=== PATIENT | male | born 1975 | race Caucasian/White ===

== ENCOUNTER 2017-04-09 17:04 | Observation (INO) | payer MEDICARE ==
[~2017-04-09] VITALS: Ht 165.1 cm; Wt 78.5 kg
[2017-04-09 18:01] LABS: BASOPHILS 0.4 % (0-2); HEMATOCRIT 43.8 % (42.0-54.0); HEMOGLOBIN 15.4 g/dL (13.5-17.5); IMMATURE GRANULOCYTES 0.7 % (0-5); LYMPHOCYTES 13.7 % (15-50); MCH 32.4 pg (26.0-34.0); MCHC 35.2 g/dL (31.0-37.0); MCV 92.2 fL (80.0-100.0); MEAN PLATELET VOLUME 9.5 fL (7.4-10.4); MONOCYTES 9.4 % (2-11); NEUTROPHILS 73.8 % (40-80); PLATELET COUNT 204 10x3/uL (130-400); RBC 4.75 10x6/uL (4.20-6.10); RDW 12.8 % (11.5-14.5); WBC 5.6 10x3/uL (4.8-10.8)
[2017-04-09 18:27] LABS: APPEARANCE CLEAR (CLEAR); BILIRUBIN NEGATIVE (NEGATIVE); COLOR YELLOW (YELLOW); GLUCOSE NEGATIVE (NEGATIVE); KETONE NEGATIVE (NEGATIVE); NITRITE NEGATIVE (NEGATIVE); PH 7.5 (5.0-6.0); PROTEIN NEGATIVE (NEGATIVE); UROBILINOGEN NORMAL (NORMAL)
[2017-04-09 18:36] LABS: ALBUMIN 4.1 g/dL (3.4-5.0); ALKALINE PHOSPHATASE 95 U/L (46-116); ALT (SGPT) 28 U/L (10-68); BILIRUBIN - TOTAL 0.37 mg/dL (0.2-1.3); CALC OSMOLALITY 280 mosm/kg (275-300); CALCIUM 8.9 mg/dL (8.5-10.1); CARBON DIOXIDE 26.6 mmol/L (21.0-32.0); CHLORIDE - SERUM 102 mmol/L (98-107); GLUCOSE 89 mg/dL (74-106); POTASSIUM - SERUM 3.4 mmol/L (3.5-5.1); PROTEIN - SERUM 7.1 g/dL (6.4-8.2); SODIUM 142 mmol/L (136-145); UREA NITROGEN 11 mg/dL (7-18); eGFR NON AFRICAN AMERICAN 87 mL/min (90-120)
[2017-04-09 18:56] LABS: CREATINE KINASE 243 UL (21-232)
[2017-04-09 18:58] LABS: TROPONIN-I < 0.017 ng/mL (0.000-0.060)
[2017-04-09 18:59] LABS: CKMB 2.1 U/L (0.0-3.6)
[2017-04-09 19:26] LABS: UDS - AMPHET NEGATIVE QUAL (NEGATIVE); UDS - BARB NEGATIVE QUAL (NEGATIVE); UDS - BENZO NEGATIVE QUAL (NEGATIVE); UDS - COCAINE NEGATIVE QUAL (NEGATIVE); UDS - OPIATE NEGATIVE QUAL (NEGATIVE); UDS - PCP NEGATIVE QUAL (NEGATIVE); UDS - THC NEGATIVE QUAL (NEGATIVE)
--- NOTE | 2017-04-09 19:50 | NUR ---
PT ARRIVES FROM THE ER ACCOMPANIED BY ER NURSE AND PT'S GIRLFRIEND VIA WC. DENIES ANY C/O CHEST PAIN UPON ARRIVAL. ROOM AIR, SATS HI 90'S. PLACED ON TELEMETRY, NSR ON MONITOR - HR 70'S. ADMISSION ASSESSMENT AND HISTORY COMPLETED. MEDICATIONS RECONCILED AT THE BEDSIDE. PT GIVEN CALL LIGHT AND INSTRUCTED TO CALL FOR FURTHER NEEDS. VERBALIZES UNDERSTANDING.
[2017-04-09 20:00] VITALS: BP 130/84; BP 176/86
[2017-04-09 20:29] VITALS: BP 130/84; Ht 165.1 cm; Wt 78.5 kg
[2017-04-09] MEDS ORDERED: CELEXA20 MG PO (20:44)
[2017-04-09] MEDS ORDERED: TOFRANIL25 MG PO (20:45)
[2017-04-09] MEDS ORDERED: CARBATROL100 MG PO (20:46)
[2017-04-10] VITALS: BP 108/77
[2017-04-10 01:33] LABS: CKMB 1.6 U/L (0.0-3.6); CREATINE KINASE 177 UL (21-232); TROPONIN-I < 0.017 ng/mL (0.000-0.060)
[2017-04-10 04:00] VITALS: BP 98/63
[2017-04-10 06:49] LABS: CREATINE KINASE 142 UL (21-232)
[2017-04-10 06:50] LABS: TROPONIN-I < 0.017 ng/mL (0.000-0.060)
--- NOTE | 2017-04-10 07:30 | NUR ---
RECEIVED PT IN BED AAOX4 RESP UNLABORED DENIES ANY NEEDS AT THIS TIME NAD NOTED
[2017-04-10 08:00] VITALS: BP 112/69
[2017-04-10 11:25] VITALS: BP 120/66
[2017-04-10 13:43] LABS: CKMB 1.4 U/L (0.0-3.6); CREATINE KINASE 129 UL (21-232); TROPONIN-I < 0.017 ng/mL (0.000-0.060)
[2017-04-10 15:39] VITALS: BP 118/60
[2017-04-10 19:00] VITALS: BP 138/79
--- NOTE | 2017-04-10 19:00 | NUR ---
RECEIVED REPORT AND ASSUMED PT CARE FROM DAY SHIFT NURSE @ THIS TIME.
[2017-04-11] VITALS: BP 130/70
[2017-04-11 04:00] VITALS: BP 126/78
[2017-04-11 05:45] LABS: BASOPHILS 0.2 % (0-2); EOSINOPHILS 3.5 % (0-7); HEMOGLOBIN 14.5 g/dL (13.5-17.5); IMMATURE GRANULOCYTES 0.4 % (0-5); LYMPHOCYTES 24.4 % (15-50); MCH 32.2 pg (26.0-34.0); MCHC 33.7 g/dL (31.0-37.0); MEAN PLATELET VOLUME 10.3 fL (7.4-10.4); MONOCYTES 10.5 % (2-11); PLATELET COUNT 187 10x3/uL (130-400); RBC 4.51 10x6/uL (4.20-6.10); RDW 13.2 % (11.5-14.5); WBC 5.1 10x3/uL (4.8-10.8)
[2017-04-11 06:18] LABS: MCV 95.3 fL (80.0-100.0)
[2017-04-11 06:28] LABS: ALBUMIN 3.2 g/dL (3.4-5.0); ALKALINE PHOSPHATASE 79 U/L (46-116); ALT (SGPT) 26 U/L (10-68); BILIRUBIN - TOTAL 0.12 mg/dL (0.2-1.3); CALC OSMOLALITY 280 mosm/kg (275-300); CARBON DIOXIDE 25.2 mmol/L (21.0-32.0); CHLORIDE - SERUM 105 mmol/L (98-107); CREATININE - SERUM 1.1 mg/dL (0.6-1.3); GLUCOSE 118 mg/dL (74-106); POTASSIUM - SERUM 3.7 mmol/L (3.5-5.1); SODIUM 141 mmol/L (136-145); UREA NITROGEN 11 mg/dL (7-18); eGFR NON AFRICAN AMERICAN 78 mL/min (90-120)
--- NOTE | 2017-04-11 07:30 | NUR ---
RECEIVED PT IN BED AAOX4 RESP UNLABORED FAITH ANY NEEDS OR DISCOMFORT AT THIS TIME NAD NOTED
[2017-04-11 07:47] VITALS: BP 117/74
[2017-04-11] MEDS ORDERED: CELEXA20 MG PO (11:23)
[2017-04-11] MEDS ORDERED: TOFRANIL25 MG PO (11:24)
[2017-04-11] MEDS ORDERED: CARBATROL100 MG PO (11:25)
[2017-04-11 11:31] VITALS: BP 119/71
--- NOTE | 2017-04-11 12:15 | EC ---
PATIENT:DAVID PONCE DATE OF SERVICE: 04/09/17 SEX: M MEDICAL RECORD: [id number] DATE OF : 75 LOCATION:D.M2 D.211 AGE OF PATIENT: 41 ADMISSION DATE: 04/09/17 REFERRING PHYSICIAN: INTERPRETING PHYSICIAN: ELIDIA SANON MD ECHOCARDIOGRAM REPORT ECHO CHARGES 4 ECHO COMPLETE CLINICAL DIAGNOSIS: CP ECHOCARDIOGRAPHIC MEASUREMENTS (adult normal given) AC root (d.<3.7cm) 2.7 cm LV Septum d (<1.2 cm> 1.3 cm Valve Excursion 1.9 cm LV Septum (systole) 1.8 cm Left Atria (s.<4.0cm> 4.2 cm LVPW d(<1.2cm) 1.3 cm RV (d.<2.3cm) 2.5 cm LVPW (sytole) 1.7 cm LV diastole(<5.6CM) 5.0 cm MV E-F(>70mm/sec) cm LV systole 3.3 cm LVOT Diameter 1.7 cm MV exc.(>10mm) cm Est.ejection fraction (50-75%) % Pericardial Effusion N DOPPLER: LVIT cm/sec A 78.0 cm/sec E 55.0 cm/sec LA cm/sec RVSP 30.0 mmHg LVOT 100 cm/sec AOP1/2T m/s Asc. Ao 120 cm/sec RVOT 73.0 cm/sec RA cm/sec PA 100 cm/sec AV Gradient Peak 5.7 mmHg AV Mean 2.9 mmHg AV Area 2.0 cm MV Gradient Peak 3.9 mmHg MV Mean 1.2 mmHg MV Area cm COMMENTS: Computer System Validation Specialist: 1 BISI SALINASOE Rn Medicare: 1 Dr. Sanon TAPE# PACS DATE OF SERVICE: 04/10/2017 FINDINGS: 1. Left ventricular chamber size is within normal limits. Left ventricular systolic function is normal. Overall ejection fraction estimated at 55% to 60%. 2. Left atrium, right is mildly dilated at 4.2 cm. Right atrium and right ventricular chamber sizes are within normal limits. 3. Valvular structures have normal structure and motion. 4. Doppler interrogation reveals trace mitral regurgitation. No other valvular insufficiency or stenosis. ECHOCARDIOGRAM REPORT [id number] DAVID PONCE 5. No evidence of pericardial effusion or left ventricular thrombus. TRANSINT:[id number] Voice Confirmation ID: [id number] DOCUMENT ID: [id number] ELIDIA SANON MD at 1215 CC: [id number] DICTATION DATE: 04/10/17 1532 PUMP SERVICE SUPERVISOR: 04/10/17 1643 ADM IN [facility] [address] [place] [address]
--- NOTE | 2017-04-11 12:40 | NUR ---
REVIEWED DISCHARGE INSTRUCTIONS WITH PT STATES UNDERSTANDING COPY GIVEN DCD SALINE LOCK TO LT SHOULDER WITH IV CATHETER INTACT SITE FREE OF REDNESS OR EDEMA PT DISCHARGED HOME LEFT UNTI VIA W/C IN STABLE CONDITION WITH ALL PERSONAL BELONGINGS
== END 2017-04-11 12:40 | disposition home or self-care (01) ==
LOC: D.ER 17:04 → OBSVTIME 19:19 → D.M2 19:19
PROVIDERS: Family Medicine; ADMIT Family Medicine
DX: R07.9 Chest pain, unspecified (principal); Z85.72 Personal history of non-Hodgkin lymphomas